=== PATIENT | female | born 1945 | race Caucasian/White ===

== ENCOUNTER → 2017-06-19 | Outpatient (CLI) | payer OTHER ==
[~2017-06-19] MED LIST: B COMPLEX WITH1 EACH PO; CALCIUM OYSTER500 MG PO; CYMBALTA30 MG PO; DAILY MULTIVIT1 EAC5; DIPHENHYDRAMINE25 M3 PO; FLONASE 0.05%50 MCG NASAL; MELOXICAM7.5 MG PO; NORCO 5-325 TA1 EACH PO; NORFLEX100 MG PO; PREMPRO 0.3 MG1 EACH PO; ZANTAC 150MG T150 M1
== END ==
LOC: RAD 01:22
DX: Z12.31 Encounter for screening mammogram for malignant neoplasm of breast (principal)

== ENCOUNTER → 2018-06-19 | Outpatient (CLI) | payer OTHER | LOC: RAD 10:50 | DX: Z12.31 Encounter for screening mammogram for malignant neoplasm of breast (principal) ==

== ENCOUNTER → 2019-07-06 | Outpatient (CLI) | payer OTHER | LOC: BC 13:47 | DX: Z12.31 Encounter for screening mammogram for malignant neoplasm of breast (principal) ==

== ENCOUNTER → 2020-07-28 | Outpatient (CLI) | payer OTHER | LOC: BC 08:56 | PROVIDERS: ATTEND Internal Medicine | DX: Z12.31 Encounter for screening mammogram for malignant neoplasm of breast (principal) ==

== ENCOUNTER → 2021-07-31 | Outpatient (CLI) | payer OTHER | LOC: BC 11:07 | PROVIDERS: ATTEND Internal Medicine | DX: Z12.31 Encounter for screening mammogram for malignant neoplasm of breast (principal); N64.89 Other specified disorders of breast ==